=== PATIENT | male | born 1935 | race Caucasian/White ===

== ENCOUNTER 2017-10-31 11:46 | Observation (INO) | payer MEDICARE, BC ==
[2017-10-31 12:48] LABS: Troponin I 0.054 ng/mL (< 0.028)
--- NOTE | 2017-10-31 14:39 | HP ---
PRIMARY CARE PHYSICIAN: Panda Hutchinson D.O. REASON FOR ADMISSION: Chest pain, congestive heart failure exacerbation. HISTORY OF PRESENT ILLNESS: An 82-year-old male who has multiple medical problems including chronic systolic/diastolic heart failure, atrial fibrillation with pacemaker, coronary artery disease with hi story of CABG, hypertension, dyslipidemia, aortic stenosis, sleep apnea, benign enlargement of prosta te, diabetes type 2, hypothyroidism. In this way, patient has multiple medical problems. He is foll owing Dr. Trinidad at [facility]. The patient reports that since Sunday, he was having upset GI tract. He was having nausea, one time vomiting and several times diarrhea associated with vague diffuse abdominal crampy pain. The patient took antidiarrheal medication and after that diarrhea has subsided. The patient's also suffere d exactly similar problem. The patient reports that he has increasing intermittent chest pain for the last 2 weeks, but last he was having chest discomfort with one episode of vomiting and he was feeling tightness and that is why this morning, patient's called Dr. See Caraballo, who advised him to go to emergency [facility] for evaluation. In the emergency room, patient had CT of the abdomen and pelvis which was pretty much unremarkable. Chest x-ray showed pulmonary vascular congestion. His BNP was elevated and he has elevated troponin and that is why this patient was sent to emergency room for further evaluation. Patient was given 4 baby aspirin prior to arrival. The patient is normally followed by Dr. Trinidad. Patient does have increasing bilateral lower extremi ty edema. He does have increasing shortness of breath. He denies any fever or chills, but he does h ave cough productive of white sputum. He denies any palpitation, dizziness or syncope. Patient repo rts that a couple of weeks ago he fell down on his chest and he was having dull chest pain, but it wa s subsided about a week ago. Patient denies any fever or chills. He denies any UTI symptoms. He denies any constipation. He den ies any melena or hematochezia. REVIEW OF SYSTEMS: The following complete review of systems was negative, unless otherwise mentioned in the HPI or below: Constitutional: Weight loss or gain, ability to conduct usual activities. Sk in: Rash, itching. Eyes: Double vision, pain. ENT/Mouth: Nose bleeding, neck stiffness, pain, te nderness. Cardiovascular: Palpitations, dyspnea on exertion, orthopnea. Respiratory: Shortness of breath, wheezing, cough, hemoptysis, fever or night sweats. Gastrointestinal: Poor appetite, abdom inal pain, heartburn, nausea, vomiting, constipation, or diarrhea. Genitourinary: Urgency, frequenc y, dysuria, nocturia. Musculoskeletal: Pain, swelling. Neurologic/Psychiatric: Anxiety, depressio n. Allergy/Immunologic: Skin rash, bleeding tendency. Please see my HPI for pertinent positive and negative. All other review of systems reviewed and nega tive except as mentioned in the HPI. PAST MEDICAL HISTORY: Atrial fibrillation, treated with pacemaker; coronary artery disease, required CABG in 1983 and redo CABG in 1997 with subsequent PTCA and stent placement in LAD graft in 1997; hy pertension; dyslipidemia; history of GA in 1997; aortic stenosis with aortic regurgitation; dilated a bdominal aorta; sleep apnea on CPAP; gastroesophageal reflux disease; history of hepatitis C, diagnos ed in 1983; benign enlargement of prostate; gout; diabetes type 2 with diabetic retinopathy; sensorin eural deafness, using hearing aid; hypothyroidism; history of colon cancer diagnosed in 1995 required surgical resection. PAST SURGICAL HISTORY: CABG in 1983 and then redo CABG in 1997, cardiac catheterization with stent p lacement in the LAD in 1997, cholecystectomy, left inguinal hernia repair, colon resection for colon cancer, left hip arthroplasty with removal of hardware and repeat left hip arthroplasty in 2014, hemo rrhoidectomy, open extraction of left kidney stone, colonoscopy with polypectomy in 2011 and endoscop y in 2012, cataract surgery, and appendicectomy. PAST PSYCHIATRIC HISTORY: Reviewed and negative. FAMILY HISTORY: Positive for coronary artery disease in sister, myocardial infarction to his brother . SOCIAL HISTORY: Patient is . He lives at home with his . He is a former smoker. He trinidad t smoking in 2005. No history of current tobacco, alcohol or illicit drug abuse. ALLERGIES: No known drug allergy. CURRENT HOME MEDICATIONS: Allopurinol 300 mg p.o. daily, vitamin C 1000 mg p.o. daily, aspirin 81 mg p.o. daily, calcium with vitamin D 1 tablet p.o. daily, Atacand 8 mg p.o. daily, Coreg 3.125 mg p.o. b.i.d., Plavix 75 mg half tablet daily, Zetia 10 mg half tablet daily, ferrous sulfate 324 mg p.o. b .i.d., Dinorah 180 mg p.o. daily p.r.n., folic acid 0.4 mg p.o. daily, garlic 1000 mg p.o. daily, Nor co 10 one tablet q.4 hourly p.r.n. for pain, multivitamin 1 tablet p.o. daily, Lovaza 1 gram p.o. luis ly, Ranexa 500 mg p.o. b.i.d., Xarelto 15 mg half tablet daily, Zocor 10 mg p.o. at bedtime, Januvia 50 mg p.o. daily, Aldactazide 25/25 one tablet p.o. daily, Flomax 0.4 mg p.o. daily, Coenzyme Q10 of 100 mg p.o. daily, vitamin B complex 150 mg p.o. daily. EMERGENCY ROOM COURSE: Reviewed. Patient is given aspirin at other emergency room. PHYSICAL EXAMINATION: VITAL SIGNS: Currently, blood pressure 160/80, pulse 74, respiratory rate 14, temperature 98.1, satu ration 96% on room air, and weight 90.7 kilograms. GENERAL: Patient is currently alert, awake, no obvious acute distress, hard of hearing, poor histori an. HEAD: Normocephalic, atraumatic. EYES: Pupils round, reactive to light. Extraocular muscle intact. ENT: Oropharynx within normal limits. Moist mucous membranes, no oral lesion, no pharyngeal erythem a, no exudate. NECK: Supple, no JVD, no thyromegaly, no carotid bruit. LUNGS: Clear to auscultation. Air entry reduced at bases. No obvious rales noted. CARDIAC: S1 and S2 appears regular. Systolic murmur grade 3/6 present at aortic area as well as ape x. ABDOMEN: Soft, bowel sounds present, nontender, nondistended. No organomegaly, no mass, no suprapub ic tenderness. BACK: Examination unremarkable, no CVA tenderness. EXTREMITIES: Upper extremity passive movements of all joints are normal. Lower extremities: Bilate ral lower extremity pitting edema noted. Good distal pulsation. SKIN: No skin rash. HEMATOLOGICAL SYSTEM: No lymphadenopathy. PSYCHIATRIC: Normal affect. NEUROLOGIC: Grossly nonfocal examination. The patient moves all 4 limbs. Plantar bilateral flexor. SIGNIFICANT LABORATORY DATA AND IMAGING DATA: 1. CBC: WBC 3.1, hemoglobin 11.8, platelets 67. INR 2.0. 2. BMP: Sodium 137, potassium 4.0, chloride 103, carbon dioxide 26, anion gap 12, BUN 16, creatinin e 0.97, glucose 110, calcium 9.0. 3. LFT: AST 80, ALT 30, alkaline phosphatase 141, albumin 3.4, lipase 8. CK-MB 1.1, troponin I 0.0 43 and then 0.054. BNP 1046.9. 4. EKG showing pacemaker rhythm. 5. CT of abdomen and pelvis done at [facility] negative for any acute intra-abdominal p rocess. 6. Chest x-ray negative for any acute process, AICD/pacemaker in place. ASSESSMENT AND PLAN/IMPRESSION: 1. Intermittent chest discomfort. The patient has elevated troponin. The patient has underlying hi story of coronary artery disease with coronary artery bypass grafting x2. The patient's EKG showing pacemaker rhythm. The patient has several high risk problem and that is why we will consult Cardiolo gy for their opinion. We will do serial cardiac enzymes x3. We will obtain echocardiography to asse ss ejection fraction and other structural abnormality. Meanwhile, I will continue aspirin 81 mg p.o. daily, Plavix 37.5 mg p.o. daily and Xarelto 7.5 mg p.o. daily. We will continue with nitropatch q. 8 hourly and check lipid profile for risk stratification. We will closely monitor on telemetry floor . 2. Coronary artery disease and patient required coronary artery bypass grafting 2 times in the past. Currently, patient is on optimum medical therapy with aspirin, Plavix, statin, beta robert, Ranexa as well as LANA inhibitors. Cardiology will be consulted. The patient is normally followed by Dr. Saurabh kaba at [facility]. 3. Hypertension. We will continue Atacand 8 mg p.o. daily, Coreg 3.125 mg p.o. b.i.d., Aldactazide 25/25 one tablet p.o. daily. 4. Acute on chronic systolic congestive heart failure, most likely this patient has systolic heart f ailure. He also has underlying valvular heart disease. The patient will be given Lasix 40 mg IV b.i .d. for his edema. We are going to obtain echocardiography and cardiac rehabilitation will be consul paulette. 5. Chronic atrial fibrillation treated with pacemaker. Patient is currently on chronic anticoagulat ion therapy with Xarelto 7.5 mg p.o. at bedtime. 6. Gout. We will continue allopurinol 300 mg p.o. daily and we will check uric acid tomorrow. 7. Dyslipidemia. Continue Zetia 5 mg p.o. daily, Lovaza 1 gram p.o. daily and Zocor 10 mg p.o. at b edtime and check lipid profile tomorrow morning. 8. Diabetes type 2. We will continue Januvia 25 mg p.o. daily. Diabetic diet will be given and ins ulin as per sliding scale per protocol. 9. Pancytopenia. We will continue Coenzyme Q10 of 100 mg p.o. daily, vitamin B complex 1 tablet luis ly, folic acid, vitamin B12 therapy as well as ferrous sulfate 325 mg p.o. b.i.d. 10. Benign enlargement of prostate. We will continue Flomax 0.4 mg p.o. daily. 11. Elevated troponin. We will do serial cardiac enzymes x3. 12. Deep venous thrombosis prophylaxis, sequential compression device boots. No Lovenox because pat ient is already on chronic anticoagulation with Xarelto and low platelet count. 13. Gastrointestinal prophylaxis, Pepcid 20 mg p.o. b.i.d. 14. Code status: The patient is FULL CODE. The patient's is surrogate decision maker. Disposition plan based on clinical course. We are expecting patient's stay in hospital 24 hours, but in case if patient needs more hospitalization based on cardiology recommendation, then we will consi swati changing to inpatient status. The patient has complicated cardiac history.
[2017-10-31] MEDS ORDERED: Artificial Tear Sol 15 ML BOT EA EYE PRN (14:41)
[2017-10-31] MEDS ORDERED: Sodium Chloride 0.65% Nasal 44 ML BOT EA NARE PRN (14:41)
[2017-10-31] MEDS ORDERED: Mag-Al 1200 mg/1200 mg/30 ML UDCUP PO PRN (14:41)
[2017-10-31] MEDS ORDERED: Zolpidem Tartrate 5 MG TAB PO PRN (14:41)
[2017-10-31] MEDS ORDERED: Loratadine 10 MG TAB PO PRN (14:41)
[2017-10-31] MEDS ORDERED: Acetaminophen 325 MG TAB PO PRN (14:41)
[2017-10-31] MEDS ORDERED: Nitroglycerin 0.4 MG TAB (25 Tab Bottle) SL PRN (14:41)
[2017-10-31] MEDS ORDERED: Chloraseptic Spray 180 ml Bottle PO PRN (14:41)
[2017-10-31] MEDS ORDERED: hydrALAZINE 20 MG/ML VIAL SLOW IVP PRN (14:41)
[2017-10-31] MEDS ORDERED: Ondansetron HCl/PF 4 MG/2 ML Vial IVP PRN (14:41)
[2017-10-31] MEDS ORDERED: Eucerin (Mineral Oil/Petrolatum,White) 30 gm Jar TOP PRN (14:41)
[2017-10-31] MEDS ORDERED: HYDROcodone/Acetaminophen 5/325 mg Tablet PO PRN (14:41)
[2017-10-31] MEDS ORDERED: Ondansetron ODT 4 MG TAB PO PRN (14:41)
[2017-10-31] MEDS ORDERED: HumaLOG 300 UNITS/3 ML VIAL SC PRN ×2 (14:41)
[2017-10-31] MEDS ORDERED: Loperamide HCl 2 MG CAP PO PRN (14:41)
[2017-10-31] MEDS ORDERED: Milk Of Magnesia 30 ML UDCUP PO PRN (14:41)
[2017-10-31] MEDS ORDERED: Senokot 8.6 MG TAB PO PRN (14:41)
[2017-10-31] MEDS ORDERED: Diabetic Tussin 200 MG/10 ML UDCUP PO PRN (14:41)
[2017-10-31] MEDS ORDERED: Dextrose 50% Abboject 50 ML SYRINGE SLOW IVP PRN (14:41)
[2017-10-31] MEDS ORDERED: Dextrose 5% in Water 1,000 ML IV PRN (14:41)
[2017-10-31] MEDS ORDERED: Furosemide 40 MG/4 ML VIAL SLOW IVP SCH (15:00)
[2017-10-31] MEDS ORDERED: Nitroglycerin 2% Ointment 1 INCH/1 GM Packet TOP SCH (15:00)
[2017-10-31 15:15] VITALS: BMI 28.0
[2017-10-31 15:54] LABS: Troponin I 0.041 ng/mL (< 0.028)
[2017-10-31 19:28] LABS: Troponin I 0.034 ng/mL (< 0.028)
--- NOTE | 2017-10-31 19:36 | CON ---
DATE OF CONSULTATION: 10/31/2017 REASON FOR CONSULTATION: Atypical chest pain. PRIMARY RACKMAN: Dr. Cordell Trinidad. HISTORY OF PRESENT ILLNESS: Mr. Omer is a very pleasant 82-year-old gentleman with a longstanding h istory of underlying coronary artery disease. He has had bypass with redo bypass in the past. He barragan s also had ID x1 in addition to multiple stents placed by Dr. Cordell Trinidad. His last stress study w as performed per his account 2-3 years ago. He recently presented with abdominal pain and diarrhea. This was noted over several days. He then t ook Imodium and developed bloating. He then complained of chest pain that he states with his family present less than 5 seconds. It was sharp in nature. It was intermittent. No other ameliorating, e xacerbating, or precipitating factors present. This is different than his previous angina. His trop onin was felt to be indeterminate. PAST MEDICAL HISTORY: As above, including atrial fibrillation, status post pacemaker placement; hype rtension; hyperlipidemia; aortic stenosis; sleep apnea; hepatitis C; BPH; diabetes mellitus; retinopa thy; hypothyroidism. PAST SURGICAL HISTORY: As above. SOCIAL HISTORY: He is currently . No current tobacco or alcohol use. ALLERGIES: None. HOME MEDICATIONS: Include [place], Januvia, Xarelto, multivitamin, Zetia, Atacand, aspirin, Coreg, iro n sulfate, Lovaza and Zocor. REVIEW OF SYSTEMS: Ten-point review of systems is reviewed and as above, otherwise negative. PHYSICAL EXAMINATION: GENERAL: Patient is a pleasant male who is in no acute distress. The patient appears his stated age . VITAL SIGNS: Blood pressure 170/74, pulse 70, temperature 98. NEUROLOGIC: The patient is alert and oriented times 3 with no focal neurologic deficits. HEENT: Sclerae without icterus. Mouth has moist mucous membranes with normal pallor. NECK: No JVD. Carotid upstroke brisk. No bruits bilaterally. LUNGS: Clear to auscultation with unlabored respirations. BACK: No scoliosis or kyphosis. CARDIAC: Regular rate and rhythm with normal S1 and S2. No S3 or S4 noted. No significant rubs, mu rmurs, thrills, or gallops noted throughout the precordium. PMI is not displaced. There is no nate ternal heave. ABDOMEN: Soft, nontender, nondistended. No peritoneal signs present. No hepatosplenomegaly. No ab normal striae. EXTREMITIES: 2+ femoral and 2+ dorsalis pedis pulses. No cyanosis, clubbing, or edema. SKIN: No gross abnormalities. PERTINENT LABORATORY DATA: As above. EKG shows paced rhythm. IMPRESSION: 1. Atypical chest pain. 2. Abdominal pain with diarrhea. RECOMMENDATIONS: The patient's symptoms suggest more of a GI etiology and not felt to be due to unst able angina. His troponin is in the indeterminate range and likely due to stress induced ischemia. His symptoms are lasting less than 5 seconds, are not consistent with angina. At this point, we woul d treat medically. We will place him on his outpatient medications and treat his diarrhea and abdomi nal discomfort. We will keep n.p.o. in case his symptoms worsen overnight. If his symptoms are stab le, I would be okay from my standpoint to discharge home with close outpatient followup with his prim fabiana frit coater, Dr. Cordell Trinidad.
[2017-10-31] MEDS ORDERED: Simvastatin 5 MG TAB PO SCH (21:00)
[2017-10-31] MEDS ORDERED: Ascorbic Acid 500 mg Chewable Tablet PO SCH (21:00)
[2017-10-31] MEDS ORDERED: Tamsulosin HCl 0.4 MG CAP PO SCH (21:00)
[2017-10-31] MEDS ORDERED: Fish Oil 1,000 MG CAP PO SCH (21:00)
[2017-10-31] MEDS: Ferrous Gluconate 324 MG TAB PO SCH (21:11)
[2017-10-31] MEDS: Carvedilol 3.125 MG TAB PO SCH (21:12)
[2017-10-31] MEDS: Famotidine 20 MG TAB PO SCH (21:12)
[2017-10-31] MEDS: Nitroglycerin 2% Ointment 1 INCH/1 GM Packet TOP SCH (21:19)
[2017-11-01 05:37] LABS: ALT (SGPT) 26 U/L (8-55); AST (SGOT) 70 U/L (5-34); Albumin 3.1 g/dL (3.4-4.8); Alkaline Phosphatase 123 U/L (40-150); Anion Gap 8 mmol/L (10-20); BUN (Urea Nitrogen) 16 mg/dL (8.4-25.7); Calc. Creatinine Clearance 76 mL/min (70-130); Calcium 8.6 mg/dL (7.8-10.44); Carbon Dioxide 28 mmol/L (23-31); Cardiac Risk 2.5 (Less than 4.5); Chloride 104 mmol/L (98-107); Cholesterol 98 mg/dl (< 200 Desired); Estimated GFR-MDRD 72; Globulin 2.3 g/dL (2.4-3.5); Glucose 95 mg/dL (83-110); HDL Cholesterol 39 mg/dL (>60 Neg Risk); LDL Cholesterol, Calculated 49 mg/dL; Magnesium 1.4 mg/dL (1.6-2.6); Potassium 4.1 mmol/L (3.5-5.1); Protein, Total 5.4 g/dL (5.8-8.1); Sodium 136 mmol/L (136-145); Triglycerides 49 mg/dL (Less than 150); Uric Acid 4.4 mg/dL (3.5-7.2)
[2017-11-01 05:38] LABS: Hemoglobin 9.8 g/dL (14.0-18.0); Mean Corpuscular HGB CONC 33.2 g/dL (32.0-36.0); Mean Corpuscular Hemoglobin 34.6 pg (27.0-31.0); Mean Platelet Volume 9.7 fL (7.4-10.4); Platelet Count 61 thou/uL (130-400); RBC Distribution Width 14.1 % (11.5-14.5); Red Blood Cell (RBC) Count 2.84 mill/uL (4.70-6.10); White Blood Cell (WBC) Count 2.5 thou/uL (4.8-10.8)
[2017-11-01 05:39] LABS: Eosinophils 7 % (0-10); Lymphocytes 34 % (21-51); MDiff Complete? YES; Monocytes 12 % (0-10); Neutrophil 47 % (42-75); PLT Morphology Comment Appears Decreased
[2017-11-01] MEDS: Furosemide 40 MG/4 ML VIAL SLOW IVP SCH ×2 (05:58→13:29)
[2017-11-01] MEDS: Nitroglycerin 2% Ointment 1 INCH/1 GM Packet TOP SCH ×2 (05:59→15:00)
[2017-11-01] MEDS ORDERED: Magnesium Sulfate 3 GM, Admixture Fee 1 EACH in Sodium Chloride 0.9% 100 ML IVPB SCH (08:00)
[2017-11-01] MEDS ORDERED: Magnesium 2 GM/NS 0.9% 100 ML 3 GM in Premix Bag 1 BAG IVPB SCH (08:00)
--- NOTE | 2017-11-01 08:58 | PDOC.CTH ---
Cardiology Progress Note - Subjective Patient with c/o CP overnight. Left sternal border. Radiating towards xiphoid process. Episodes once an hour unless he gets up and moves, then more frequent. Usually last <30 seconds. Sharp in nature. - ROS chest pain - Objective Vital Signs Temp Pulse Resp BP Pulse Ox 11/01/17 08:16 98.0 F 85 20 193/88 H 96 11/01/17 07:50 97.9 F 79 18 11/01/17 04:15 97.9 F 79 18 163/71 H 96 10/31/17 23:35 98 F 79 18 119/56 L 97 10/31/17 22:35 98 F 79 18 119/56 L 97 Weight 205 lb 12.8 oz 10/31/17 11/01/17 11/02/17 06:59 06:59 06:59 Intake Total 600 Output Total 900 900 Balance -300 -900 - Physical Examination General/Neuro: alert & oriented x3, NAD Neck: no JVD present Lungs: CTA, unlabored respirations Heart: PMI normal, RRR, other: (II/ SM at LSB) Abdomen: NT/ND Extremities: other: (+1 SHANNAN) - Telemetry Telemetry Rhythm: pacing - Labs Result Diagrams: 11/01/17 04:12 11/01/17 04:12 Troponin/CKMB Troponin I 0.034 ng/mL (< 0.028) H 10/31/17 18:39 - Assessment/Plan 1. Atypical CP - Discussed at length with patient, and daughter. Symptoms are atypical for ischemia. Negative cardiac enzymes. They are concerned about CAD given his history and say that they cannot get in to see their primary dry cleaner presser for a week or two. MPI ordered. If negative, home today. Also requesting ICD interrogation since the pain is sharp/stabbing. Tele appears with normal pacing, but interrogation ordered by hospitalist already. 2. Acute on chronic systolic CHF - improved volume status. No changes to care. 3. s/p AICD - see above 4. CAD s/p CABG - daughter reports no history of PCI and only CABG which is different from what was previously stated. No records to review. No recent MPI. 5. HTN - uncontrolled this morning, but well-controlled yesterday. AM meds to be given and will continue to monitor. Dr. Caputo to see patient and review all later today.
[2017-11-01] MEDS ORDERED: Spironolactone/Hctz 25 MG/25 MG TABLET PO SCH (09:00)
[2017-11-01] MEDS ORDERED: Alogliptin 6.25 MG TAB PO SCH (09:00)
[2017-11-01] MEDS ORDERED: Allopurinol 300 MG TAB PO SCH (09:00)
[2017-11-01] MEDS ORDERED: Ezetimibe 10 MG TAB PO SCH (09:00)
[2017-11-01] MEDS ORDERED: Stress 600 With Zinc 1 TAB PO SCH (09:00)
[2017-11-01] MEDS ORDERED: Folic Acid 1 MG TAB PO SCH (09:00)
[2017-11-01] MEDS ORDERED: Rivaroxaban 15 MG TAB PO SCH (09:00)
[2017-11-01] MEDS ORDERED: Cyanocobalamin (Vitamin B-12) 1,000 MCG TAB PO SCH (09:00)
[2017-11-01] MEDS ORDERED: Clopidogrel Bisulfate 75 MG TAB PO SCH (09:00)
[2017-11-01] MEDS ORDERED: Ubidecarenone 50 MG CAP PO SCH (09:00)
[2017-11-01] MEDS ORDERED: Multivitamin W/ Minerals 1 TAB PO SCH (09:00)
--- NOTE | 2017-11-01 09:30 | DIS ---
DATE OF ADMISSION: 10/31/2017 DATE OF DISCHARGE: 11/01/2017 PRIMARY CARE PHYSICIAN: Panda Hutchinson D.O. DISCHARGE DIAGNOSES: 1. Noncardiac chest pain. 2. History of coronary artery disease. 3. Ischemic cardiomyopathy. 4. Chronic systolic congestive heart failure without acute exacerbation. 5. Chronic atrial fibrillation. 6. Benign prostatic hypertrophy without lower urinary tract symptoms. 7. Elevated CK-MB with normal troponin. 8. Diabetes mellitus, type 2, without mention of complications. 9. History of chronic hepatitis C. 10. Compensated cirrhosis. 11. Pancytopenia secondary to cirrhosis. 12. Essential hypertension. 13. Hyperlipidemia. 14. Gout without acute exacerbation. CONSULTATIONS: Cardiology, Dr. Andrew Caputo. PROCEDURES: Nuclear Stress test: probably normal perfusion scan, EF 41%, attenuation correction images without reversible defect HISTORY AND PHYSICAL: Mr. Omer is an 82-year-old gentleman with the above history, who presented in the emergency department on the day of admission with complaints of left-sided chest pain that he described as shooting sensations, lasting less than 5 seconds. Evaluation in the emergency department showed an elevated CK-MB at 10.2; however, his troponin I remained negative. Workup was, otherwise, unremarkable, and we are simply call admit. HOSPITAL COURSE: The patient was seen and examined by Dr. Blackmon and placed on observation. Cardiology was consulted. The patient was seen by Dr. Caputo, who felt this was not cardiac in nature. The patient had been having some diarrhea. He recommended treating the diarrhea and watching. Overnight, patient had negative serial troponins, abdominal pain, diarrhea, nausea resolved with a single dose of Zofran on admission and labs remained normal otherwise. Magnesium, on the day of admission, was low at 1.4 and was replaced, and the patient was discharged home in stable condition with outpatient followup. DISCHARGE PHYSICAL EXAMINATION: The patient was seen and examined on the day of discharge. Discharge plan and disposition were discussed with the patient [id number] at the bedside. DISCHARGE MEDICATIONS: NEW MEDICATIONS: None. HOME MEDICATIONS: To resume, 1. Allopurinol 300 mg p.o. daily. 2. Ascorbic acid 1000 mg q.p.m. 3. Atacand 8 mg p.o. daily. 4. Iron gluconate 324 mg p.o. b.i.d. 5. Theragran-M multivitamin daily. 5. Lawn-3, 1 gram b.i.d. 6. Ranexa 500 mg p.o. b.i.d. 7. Zocor 10 mg p.o. at bedtime. 8. Aldactazide 25/25 one p.o. daily. 9. Flomax 0.4 mg p.o. q.p.m. 10. Vitamin B 150 mg p.o. daily. 11. Calcium citrate/vitamin D3 1500/250 1 p.o. b.i.d. 12. Coreg 3.125 mg p.o. b.i.d. with meals. 13. Codeine phosphate/guaifenesin solution 5 mL p.o. q.4 hours p.r.n. cough. 14. Zetia 10 mg p.o. q.p.m. 15. Dinorah 180 mg p.o. as needed for allergies. 16. Folic acid 0.4 mg daily. 17. Lasix 40 mg daily. 18. Garlic 1000 mg daily. 19. Lisinopril 5 mg daily. 20. Nitroglycerin 0.4 mg sublingual every 5 minutes, p.r.n. chest pain. 21. Pravachol 40 mg p.o. at bedtime. 22. Xarelto 7.5 mg p.o. q.p.m. with meals, mixed 23. Januvia 25 mg p.o. daily. 24. Spironolactone 25 mg p.o. daily. 25. CoQ10 10 mg p.o. daily. DISCHARGE CONDITION: Stable. DISPOSITION: Will be discharged home via private vehicle with outpatient followup. FOLLOWUP APPOINTMENTS: 1. Primary care physician, Dr. See Hutchinson, within a week. 2. Dr Caraballo in his office (P.A.) Sunday 11/05 DISCHARGE ACTIVITY: Per cardiopulmonary limits. DISCHARGE DIET: Heart healthy, diabetic diet recommended. MTDD
[2017-11-01] MEDS: Famotidine 20 MG TAB PO SCH (09:34)
[2017-11-01] MEDS: Ferrous Gluconate 324 MG TAB PO SCH (09:36)
[2017-11-01] MEDS ORDERED: Spironolactone 25 MG TAB PO SCH (11:00)
[2017-11-01] MEDS ORDERED: Hydrochlorothiazide 25 MG TAB PO SCH (11:00)
[2017-11-01] MEDS: Carvedilol 3.125 MG TAB PO SCH (13:26)
[2017-11-01] MEDS ORDERED: ADENOSINE 60 MG/20 ML VIAL ONE (14:41)
--- NOTE | 2017-11-01 14:59 | NM ---
RADIONUCLIDE STRESS REST MYOCARDIAL PERUSION SCAN WITH CT ATTENUATION CORRECTION AND SPECT IMAGING LEFT VENTRICULAR WALL MOTION EVALUATION WITH EJECTION FRACTION: History: Chest pain. FINDINGS: Adenosine protocol was used. There is very heterogeneous uptake throughout the left ventricular myoca rdium on the stress and rest images. At the inferior lateral wall on the initial stress images, decre ased uptake is apparent. Attenuation correction images, however, show no significant reversibility. Q GS analysis of gated SPECT images shows global hypokinesis. Ejection fraction is calculated at 41%. IMPRESSION: 1. Probably normal myocardial perfusion scan showing no reliable evidence of ischemia. 2. Depressed ejection fraction of 41% with diffuse hyperkinesis. POS: [facility]
[2017-11-01 15:32] VITALS: BP 130/70; TEMP 97.4
[2017-11-02] MEDS ORDERED: Spironolactone 25 MG TAB PO SCH (09:00)
[2017-11-02] MEDS ORDERED: Hydrochlorothiazide 25 MG TAB PO SCH (09:00)
--- NOTE | 2017-11-05 11:40 | STRESS ---
Acquisition Time: 2017-11-01 11:25:49 Total Exercise Time: 00:04:00 Test Indications: CHEST PAIN Medications: Protocol: ADENOSINE Max HR: 091 BPM 65% of Pred: 138 BPM Max BP: 138/074 mmHG Max Work Load: 1.0 METS RESTING ECG: PACED RHYTHM AT 81 BPM WITH OCCASIONAL PVCs SYMPTOMS: SHORTNESS OF BREATH APPROPRIATE BLOOD PRESSURE RESPONSE FOR ADENOSINE ECTOPY: OCCASIONAL PVCs ECG RESPONSE: NO SIGNIFICANT CHANGES INTERPRETATION: INDETERMINATE ECG/AWAIT NUCLEAR IMAGES FOR DEFINITIVE DIAGNOSIS Confirmed by LIZBETH RODRÍGUEZ M.D. ([id number] on 11/05/2017 11:39:45 AM Referred By: Tomeka AGUILA Confirmed By:LIZBETH RODRÍGUEZ M.D.
== END 2017-11-01 17:59 | disposition home or self-care (01) ==
LOC: ERS 11:46 → 2SW 13:59
PROVIDERS: ADMIT Internal Medicine; ATTEND Internal Medicine
DX: R07.89 Other chest pain (principal); I25.10 Atherosclerotic heart disease of native coronary artery without angina pectoris; I25.5 Ischemic cardiomyopathy; I11.0 Hypertensive heart disease with heart failure; I50.22 Chronic systolic (congestive) heart failure; E11.9 Type 2 diabetes mellitus without complications; I48.2 Chronic atrial fibrillation; N40.0 Benign prostatic hyperplasia without lower urinary tract symptoms; K74.60 Unspecified cirrhosis of liver; D61.818 Other pancytopenia; E78.5 Hyperlipidemia, unspecified; E03.9 Hypothyroidism, unspecified; M10.9 Gout, unspecified; K73.9 Chronic hepatitis, unspecified; Z79.01 Long term (current) use of anticoagulants; Z79.82 Long term (current) use of aspirin; Z79.899 Other long term (current) drug therapy; Z95.1 Presence of aortocoronary bypass graft; Z98.890 Other specified postprocedural states; Z87.891 Personal history of nicotine dependence
CPT/HCPCS: 78452; 80053; 80061; 82962 ×2; 83735; 84484; 84550; 85025; 93005; 93017; 96365; 96375; 96376; 99285; A9500; G0378; 36415; 36416; A4216; J0153; J1940; J3475; J7050

== ENCOUNTER 2017-12-12 09:25 | Outpatient (CLI) | payer MEDICARE, BC | END 2017-12-12 09:26 | disposition home or self-care (01) | LOC: BICCT 09:25 | PROVIDERS: ATTEND Internal Medicine Gastroenterology | DX: K74.60 Unspecified cirrhosis of liver (principal); R93.3 Abnormal findings on diagnostic imaging of other parts of digestive tract; R18.8 Other ascites; Z87.448 Personal history of other diseases of urinary system | CPT/HCPCS: 82565 ==